=== PATIENT | female | born 2000 | race Caucasian/White ===

== ENCOUNTER → 2019-05-16 | Outpatient (REF) | LOC: WSPT 10:04 | DX: Z02.1 Encounter for pre-employment examination (principal) ==

== ENCOUNTER 2024-07-20 00:11 | Outpatient (CLI) | payer BC ==
[~2024-07-20] VITALS: Ht 170.2 cm; Wt 118.2 kg
--- NOTE | 2024-07-20 00:27 | NUR ---
Arrives, ambulatory, to L&D, for labor check. Reports regular contractions every 5 minutes over last 2 hours. Denies any leaking of fluid, vaginal bleeding. Reports positive movement.
[2024-07-20 00:30] VITALS: BP 132/79; PULSE 107; TEMP 97.5
[2024-07-20] MEDS ORDERED: LR 1,000 ML IV PRN (00:30)
--- NOTE | 2024-07-20 00:35 | NUR ---
Informed after speaking with , provider okay with patient discharging to home without repeat SVE if patient chooses. Informed welcome to stay for repeat SVE as well. Patient would like to think about it, will let this scientific writer know what she decides.
[2024-07-20] MEDS ORDERED: PRENATAL TABLET PO (01:06)
[2024-07-20] MEDS ORDERED: PROAIR HFA0.09 MG/AC IH (01:07)
--- NOTE | 2024-07-20 01:10 | NUR ---
Calls out to nurse's station stating she would like to go home. Labor precautions given. Discussed differences between early labor and active labor. Verbalizes understanding.
== END 2024-07-20 01:20 | disposition home or self-care (01) ==
LOC: LDRO 00:11
DX: O47.1 False labor at or after 37 completed weeks of gestation (principal); Z3A.40 40 weeks gestation of pregnancy

== ENCOUNTER 2024-07-23 22:56 | Outpatient (CLI) | payer BC ==
[~2024-07-23] VITALS: Ht 170.2 cm; Wt 117.7 kg
[~2024-07-23 22:56] MED LIST: PRENATAL TABLET PO; PROAIR HFA0.09 MG/AC IH
[2024-07-23 23:30] VITALS: BP 124/81; PULSE 115; TEMP 97.4
[2024-07-23] MEDS ORDERED: LR 1,000 ML IV PRN (23:45)
[2024-07-24] VITALS: BP 129/75; PULSE 113
[2024-07-24 00:30] VITALS: BP 122/63; PULSE 94
[2024-07-24 01:00] VITALS: BP 114/57; PULSE 93
== END 2024-07-24 01:00 | disposition home or self-care (01) ==
LOC: LDRO 22:56
DX: O26.893 Other specified pregnancy related conditions, third trimester (principal); E75.5 Other lipid storage disorders; Z3A.40 40 weeks gestation of pregnancy